=== PATIENT | female | born 1980 | race Two or more races ===

== ENCOUNTER 2021-08-21 04:12 | Day surgery (SDC) | payer OTHER ==
[2021-08-19 17:17] VITALS: BMI 25.8
[2021-08-21] MEDS ORDERED: BUPIVACAINE HCL/PF 0.5% (5MG/ML) 10 ML VIAL ONE ×2 (07:55→07:59)
[2021-08-21] MEDS ORDERED: LIDOCAINE 1%/EPI 1:100000 (20 ML MULTI DOSE VIAL) ONE (07:55)
[2021-08-21] MEDS ORDERED: SUCCINYLCHOLINE CHLORIDE 200 MG/10 ML SYRINGE ONE ×2 (09:38→10:03)
[2021-08-21] MEDS ORDERED: MIDAZOLAM HCL 2 MG/2 ML SINGLE DOSE VIAL ONE ×2 (09:38→10:03)
[2021-08-21] MEDS ORDERED: fentaNYL CITRATE 250 MCG/5 ML VIAL ONE (09:38)
[2021-08-21] MEDS ORDERED: PROPOFOL 20 ML ONE ×5 (09:38→10:39)
[2021-08-21] MEDS ORDERED: ceFAZolin SODIUM 1 GM VIAL ONE ×2 (09:40→10:25)
[2021-08-21] MEDS ORDERED: DEXAMETHASONE SOD PHOSPHATE 4 MG/1 ML VIAL ONE ×2 (09:40→10:14)
[2021-08-21] MEDS ORDERED: LIDOCAINE HCL/PF 2% SDV 5ML VIAL ONE (09:40)
[2021-08-21] MEDS ORDERED: ONDANSETRON 4 MG/2 ML VIAL ONE ×2 (10:14→13:18)
[2021-08-21] MEDS ORDERED: ceFAZolin SODIUM 1 GM VIAL IVPB ONE (10:26)
[2021-08-21] MEDS ORDERED: LIDOCAINE 1%/EPI 1:100000 (20 ML MULTI DOSE VIAL) IJ ONE (10:41)
[2021-08-21] MEDS ORDERED: BUPIVACAINE HCL/PF 0.5% (5MG/ML) 10 ML VIAL IJ ONE (10:41)
[2021-08-21] MEDS ORDERED: MICROFIBRILLAR COLLAGEN 1 GM EACH NR ONE (11:26)
[2021-08-21] MEDS ORDERED: ONDANSETRON 4 MG/2 ML VIAL IVPUSH PRN (11:51)
[2021-08-21] MEDS ORDERED: oxyCODONE HCL 5 MG TABLET PO PRN (11:51)
[2021-08-21] MEDS ORDERED: LACTATED RINGERS SOLUTION 1,000 ML IV SCH (12:00)
[2021-08-21 15:10] VITALS: BP 124/74; PULSE 80; TEMP 97
== END 2021-08-21 15:08 | disposition home or self-care (01) ==
LOC: JASU-SURG 04:12
PROVIDERS: ATTEND Surgery
PROC: 07B20ZX Excision of Left Neck Lymphatic, Open Approach, Diagnostic (ICD-10-PCS; 2021-08-21)
PROC: 0GBG0ZZ Excision of Left Thyroid Gland Lobe, Open Approach (ICD-10-PCS; principal; 2021-08-21 10:00)
DX: D34 Benign neoplasm of thyroid gland (principal); R59.0 Localized enlarged lymph nodes
CPT/HCPCS: 81025; 88305-TC; 88307-TC; 88331-TC; 94760

== ENCOUNTER 2022-07-01 14:44 | Emergency (ER) | payer OTHER ==
[2022-07-01 15:44] VITALS: BP 132/83; PULSE 75; RESP 20; TEMP 98.1; BMI 26.7
[2022-07-01] MEDS ORDERED: IBUPROFEN 600 MG TABLET (FP) PO ONE ×2 (16:27→16:28)
== END 2022-07-01 17:35 | disposition home or self-care (01) ==
LOC: JER 14:44 → JERFT 14:44
DX: M79.644 Pain in right finger(s) (principal); L03.011 Cellulitis of right finger
CPT/HCPCS: 73130-TC-RT-FY; 73140-TC-RT-FY; 99284-25

== ENCOUNTER 2023-05-11 08:19 | Emergency (ER) | payer OTHER ==
[2023-05-11 08:38] VITALS: BP 130/74; PULSE 80; RESP 18; TEMP 98.7; BMI 24.4
[2023-05-11] MEDS ORDERED: LIDOCAINE 5% TOPICAL PATCH TP ONE (09:39)
[2023-05-11] MEDS ORDERED: ACETAMINOPHEN 650 MG/20.3 ML ORAL SOLUTION (CUPS) PO ONE (09:39)
[2023-05-11] MEDS ORDERED: KETOROLAC TROMETHAMINE 30 MG/1 ML VIAL IM ONE (09:39)
[2023-05-11] MEDS ORDERED: KETOROLAC TROMETHAMINE 30 MG/1 ML VIAL ONE (10:11)
[2023-05-11] MEDS ORDERED: ACETAMINOPHEN 500 MG TABLET (FP) ONE (10:11)
[2023-05-11] MEDS ORDERED: LIDOCAINE 4% PATCH TP ONE (10:11)
[2023-05-11] MEDS ORDERED: LIDOCAINE PATCH REMOVAL MC SCH (22:00)
== END 2023-05-11 10:41 | disposition home or self-care (01) ==
LOC: JER 08:19 → JERFT 08:19
PROC: 3E0233Z Introduction of Anti-inflammatory into Muscle, Percutaneous Approach (ICD-10-PCS; principal; 2023-05-11)
DX: M54.50 Low back pain, unspecified (principal)
CPT/HCPCS: 99284-25